=== PATIENT | male | born 1990 | race Caucasian/White ===

== ENCOUNTER 2024-03-13 16:00 | Outpatient (CLI) | payer OTHER | END 2024-03-13 16:01 | disposition home or self-care (01) | LOC: SLEEPLAB 16:00 | PROVIDERS: ATTEND Allergy & Immunology | DX: G47.33 Obstructive sleep apnea (adult) (pediatric) (principal); R06.83 Snoring; K21.9 Gastro-esophageal reflux disease without esophagitis; G47.00 Insomnia, unspecified; J30.2 Other seasonal allergic rhinitis | CPT/HCPCS: 95810 ==